=== PATIENT | male | born 1975 | race African-American/Black ===

== ENCOUNTER 2017-05-03 21:57 | Emergency (ER) | payer MEDICAID ==
[~2017-05-03] VITALS: Ht 190.5 cm; Wt 86.2 kg
[~2017-05-03 21:57] MED LIST: DILANTIN100 MG ORAL; NKM
[2017-05-03 22:23] VITALS: BP 125/86
[2017-05-03] MEDS ORDERED: Morphine Sulfate 4mg/ml Inj IVP ONE (22:30)
--- NOTE | 2017-05-03 23:16 | Emergency Room Report ---
History of Present Illness General Chief Complaint: Abdominal Pain Source: Patient, EMS Present Illness HPI This is a 42-year-old male with no past medical history. He presents with chief complaint abdominal pain. He said pain was like he was working. Been 2 hours. EMS said they picked him up at the bus stop. Patient appear nausea vomiting. No diarrhea. Pain is diffuse in nature. 10 out of 10. Nothing made it better nothing made it worse. Denies any other complaint. No urinary complaint. Allergies: Coded Allergies: No Known Allergies (Unverified , 09/23/15) Patient History Past Medical History: see triage record, old chart reviewed Past Surgical History: other Pertinent Family History: none Social History: Reports: smoking Immunizations: other Reviewed Nursing Documentation: PMH: Agreed, PSxH: Agreed Review of Systems Eye: Denies: eye pain, blurred vision ENT: Denies: ear pain, nose congestion, throat swelling Respiratory: Denies: cough, shortness of breath Cardiovascular: Denies: chest pain, palpitations Gastrointestinal: Reports: abdominal pain, nausea, vomiting, Denies: diarrhea Musculoskeletal: Denies: back pain, joint pain Skin: Denies: rash Neurological: Denies: headache, numbness Endocrine: Denies: increased thirst, increased urine Hematologic/Lymphatic: Denies: easy bruising All Other Systems: negative except mentioned in HPI Physical Exam Vital Signs Date Time Temp Pulse Resp B/P (MAP) Pulse Ox O2 Delivery O2 Flow Rate FiO2 05/03/17 21:49 97.7 58 18 119/66 100 Room Air vitals normal Sp02 EP Interpretation: reviewed, normal General Appearance: well appearing, no apparent distress, alert Head: normocephalic, atraumatic Eyes: bilateral eye PERRL, bilateral eye EOMI ENT: hearing grossly normal, normal pharynx Neck: full range of motion, supple, no meningismus Respiratory: chest non-tender, lungs clear, normal breath sounds Cardiovascular #1: regular rate, rhythm, no murmur Gastrointestinal: normal bowel sounds, no mass, no organomegaly, no bruit, non- distended, tenderness Musculoskeletal: back normal, gait/station normal, normal range of motion Psychiatric: mood/affect normal Skin: warm/dry Medical Decision Making Diagnostic Impression: Primary Impression: Abdominal pain of unknown etiology Additional Impression: Ileus ER Course Patient with abdominal pain and vomiting. No evidence of obstruction. No vomiting he's been here. Pain better. No evidence of appendicitis. Will discharge home. Lab Results Impression labs normal Last Vital Signs Date Time Temp Pulse Resp B/P (MAP) Pulse Ox O2 Delivery O2 Flow Rate FiO2 05/03/17 22:23 98.6 63 21 125/86 99 Room Air Status: improved Disposition: HOME, SELF-CARE Condition: Stable Scripts Ibuprofen* (MOTRIN*) 600 Mg Tablet 600 MG ORAL Q8H Y for For Pain, #30 TAB 0 Refills Prov: EDEN JOSHUA M.D. 05/04/17 Ondansetron (Zofran) 4 Mg Tablet 4 MG ORAL Q6H Y for Nausea & Vomiting, #10 TAB 0 Refills Prov: EDEN JOSHUA M.D. 05/04/17 Patient Instructions: Abdominal Pain, Adult Additional Instructions: Followup with your Dr. in 7 days. Return if worse. EDEN JOSHUA M.D. May 03, 2017 23:16
[2017-05-03 23:27] LABS: ALANINE AMINOTRANSFERASE 17 U/L (3-41); ALBUMIN/GLOBULIN RATIO 1.7 (1.0-2.7); ANION GAP 13 (5-15); ASPARTATE AMINO TRANSFERASE 21 U/L (5-40); CALCIUM 9.5 mg/dL (8.6-10.2); CARBON DIOXIDE 26 mEQ/L (20-30); CHLORIDE 100 mEQ/L (98-107); CREATININE 0.9 mg/dL (0.7-1.2); GLOMERULAR FILTRATION RATE > 60 mL/min (>60); HEMOLYSIS 30; LIPASE 80 U/L (< 60); POTASSIUM 4.1 mEQ/L (3.4-4.9); SODIUM 139 mEQ/L (135-145); TOTAL PROTEIN 6.8 g/dL (6.6-8.7)
[2017-05-03 23:48] LABS: BASOPHILS % (AUTO) 0.7 % (0.0-2.0); EOSINOPHILS % (AUTO) 1.8 % (0.0-3.0); LYMPHOCYTES % (AUTO) 14.1 % (20.0-45.0); MEAN CORPUSCULAR HEMOGLOBIN 33.7 PG (27.0-31.0); MEAN CORPUSCULAR HGB CONC 34.7 G/DL (32.0-36.0); MEAN CORPUSCULAR VOLUME 97 FL (80-99); MEAN PLATELET VOLUME 6.2 FL (6.5-10.1); MONOCYTES % (AUTO) 4.5 % (1.0-10.0); PLATELET COUNT 197 K/UL (150-450); RED BLOOD COUNT 3.95 M/UL (4.70-6.10); WHITE BLOOD COUNT 8.6 K/UL (4.8-10.8)
[2017-05-04 00:20] LABS: APPEARANCE,URINE CLEAR; KETONES,URINE 3+ (NEGATIVE); NITRITE,URINE NEGATIVE (NEGATIVE); PH,URINE 8 (4.5-8.0); PROTEIN,URINE NEGATIVE (NEGATIVE); UROBILINOGEN,URINE 1 MG/DL (0.0-1.0)
[2017-05-04 00:22] LABS: LEUKOCYTE ESTERASE ,URINE NEGATIVE (NEGATIVE)
[2017-05-04 00:32] VITALS: BP 118/56
[2017-05-04] MEDS ORDERED: IBUPROFEN600 MG ORAL (01:39)
[2017-05-04] MEDS ORDERED: ZOFRAN4 MG ORAL (01:39)
[2017-05-04 02:01] VITALS: BP 124/60
--- NOTE | 2017-05-04 09:28 | Diagnostic Imaging Report ---
Indication: Abdominal pain Technique: CT scan of the abdomen and pelvis utilizing automated exposure control without intravenous or oral contrast. Axial, sagittal and coronal images were obtained. CT dose: Total DLP 519 mGycm; CTDI vol 10.6 mGy Comparison: None Findings: Evaluation of the solid organs is limited without intravenous contrast material. There is mild atelectasis in the lung bases. The liver, adrenal glands, kidneys, spleen and pancreas are grossly unremarkable. No CT evident gallstones are seen. The small bowel loops are normal in caliber. There is no definitive evidence of appendicitis. The bladder is grossly unremarkable. There is no free intraperitoneal air. There is fecalization of a small bowel loop in the anterior pelvis mild prominent in caliber measuring 2.9 cm. The abdominal aorta is normal in caliber. Degenerative changes of the spine are seen. Impression: Limited evaluation of solid organs and bowel without intravenous or oral contrast. No evidence of appendicitis. Mildly prominent small bowel loop of the anterior lower abdomen with fecalization. Findings could represent ileus, enteritis or small bowel stasis. Possibility of a developing obstructive process considered less likely but not completely excluded. Followup recommended as indicated. Other findings as above. The above report is concordant with preliminary reading by [facility]. The CT scanner at [facility] is accredited by the [employer] and the scans are performed using protocols designed to limit radiation exposure to as low as reasonably achievable to attain images of sufficient resolution adequate for diagnostic evaluation.
== END 2017-05-04 02:04 | disposition home or self-care (01) ==
LOC: EDBD 21:57 → EMR 22:30
DX: R10.9 Unspecified abdominal pain (principal); F17.200 Nicotine dependence, unspecified, uncomplicated; K56.7 Ileus, unspecified
CPT/HCPCS: 36415; 74176; 80053; 80300; 81003; 83690; 85025; 96361; 96374; 96375; 99284; J2270; J2405